=== PATIENT | female | born 1955 | race Caucasian/White ===

== ENCOUNTER 2016-11-24 11:31 | Inpatient (IN) ==
[2016-11-24] MEDS ORDERED: Clindamycin 900 MG/50 ML 900 MG/50 ML IV.SOLN IVPB ONE (12:07)
[2016-11-24] MEDS ORDERED: *HR* Propofol 200 MG/20 ML VIAL IVP ONE (12:08)
[2016-11-24] MEDS ORDERED: *HR* FentaNYL (PF) 100 MCG/2 ML VIAL ONE (12:08)
[2016-11-24] MEDS ORDERED: Ondansetron 4 MG/2 ML VIAL ONE ×2 (12:08→18:01)
[2016-11-24] MEDS ORDERED: Neostigmine Methylsulfate 3 MG/3 ML SYRINGE ONE ×2 (12:08→16:58)
[2016-11-24] MEDS ORDERED: *HR* Rocuronium Bromide 50 MG/5 ML VIAL ONE ×2 (12:08→13:51)
[2016-11-24] MEDS ORDERED: Lidocaine -MPF 2% 2 ML VIAL ONE (12:08)
[2016-11-24] MEDS ORDERED: Lidocaine 1% 20 ML MDV ID ONE (12:09)
[2016-11-24] MEDS ORDERED: *HR* Midazolam HCl 2 MG/2 ML VIAL ONE (12:09)
[2016-11-24] MEDS ORDERED: Albuterol 2.5 MG/3 ML NEBULIZER IH ONE (12:09)
[2016-11-24] MEDS ORDERED: Ringers Solution, Lactated 1,000 ML IVC SCH (12:15)
--- NOTE | 2016-11-24 12:30 | History & Physical Report ---
Date of Encounter: 11/24/16 Time of Encounter: 12:30 24 Hour HP Update - Instructions Instructions: If the History and Physical is less than 30 days old and was completed prior to A.M. admission and or procedure and has NOT been updated on calendar day of procedure please complete this update prior to performing procedure. - Update Patient reports changes in Medical Condition: No Changes in assessment/condition: No Changes in Medication: No Surgery Remains Indicated: Yes Consent for Planned Operative Procedure(s) Verified: Yes - Pre-Operative Checklist Prophylactic Antibiotic Ordered: Yes Home Medications Include Beta Elvis: No Is VTE Prophylaxis Indicated?: Yes
--- NOTE | 2016-11-24 12:49 | Anesthesia Evaluation PreOp ---
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: Denies Any Significant HX Other Medical History: Other (PTSD) Anesthesia History: No Prior Anesthetic Complications : No Alcohol Use: none Drug use: none Medications and Allergies Alprazolam [Xanax 0.5 MG Tablet] 0.5 mg PO TID 07/21/16 [History] Aspirin [Ecotrin] 325 mg PO DAILY 07/21/16 [History] Atorvastatin Calcium 80 mg PO DAILY 07/21/16 [History] Lidocaine Patch [Lidoderm 5% patch] 1 each TP DAILY PRN 07/21/16 [History] Lisinopril [Zestril] 10 mg PO DAILY 07/21/16 [History] Loratadine [Allergy Relief] 10 mg PO DAILY 07/21/16 [History] Sertraline [Zoloft] 25 mg PO DAILY 07/21/16 [History] Tizanidine HCl 4 mg PO DAILY PRN 07/21/16 [History] Vitamin B Complex [B Complex] 1 tab PO DAILY 07/21/16 [History] Docusate [Colace] 100 mg PO BID PRN #30 capsule 08/25/16 [Rx] OxyCODONE/APAP 10/325 [Percocet 10/325 MG] 1 each PO Q4HR PRN #40 tablet [Rx] Allergies Erythromycin Base Adverse Reaction (Verified 08/04/16 13:08) Vomiting Penicillins Adverse Reaction (Verified 08/04/16 13:08) Rash sulfamethoxazole [From Bactrim] Adverse Reaction (Verified 08/04/16 13:08) Rash trimethoprim [From Bactrim] Adverse Reaction (Verified 08/04/16 13:08) Rash - Meds/Allergy Pre-op Review Medications Reviewed: Yes Allergies Reviewed: Yes Beta Blockers on Current Med List: No Anesthesia Results - Labs Laboratory Tests 11/01/16 09:05 Hgb 12.3 Hct 38.5 Plt Count 198 - Imaging EKG: report reviewed (Sinus Tach short AL) Anesthesia Exam O2 Sat Height 1.57 m Height 1.57 m Weight 58.513 kg Weight 58.513 kg O2 Sat by Pulse Oximetry 97 O2 Sat by Pulse Oximetry 97 Vital Signs Temp Pulse Resp BP Pulse Ox 98.1 F 111 18 115/73 97 11/24/16 11:49 11/24/16 11:49 11/24/16 11:49 11/24/16 11:49 11/24/16 11:49 Height: 5'2 Weight: 129 lbs NPO (# of Hours): MN Pain Scale: 0 - HEENT Pupil (Motor): Pupils equal, EOMI Mallampati: II Teeth: Normal Denture Type: Upper: Complete Oral Opening: Greater than 3 - DIESEL POWER MECHANIC LOC: Oriented DIESEL POWER MECHANIC Motor: Normal RUE, Normal LUE, Normal RLE, Normal LLE, Normal Face DIESEL POWER MECHANIC Sensory: Normal: RUE, LUE, RLE, LLE, Face - Cardiac Rhythm: Regular JVD: No Carotid Bruit: No - Pulmonary Breath Sounds: bilateral Clear Respiratory Effort: Symmetrical Anesthesia Assess/Plan ASA Score: 3 (CAD HTN COPD) Modified Soraida Scale for Level of Consciousness: Cooperative, oriented, and tranquil Anesthetic Plan: General Monitoring Plan: A-Line Recovery Plan: PACU (Discussed GA, agrees to proceed)
[2016-11-24] MEDS ORDERED: *HR* HYDROmorphone 2 MG/ML SYRINGE ONE ×2 (14:02→16:58)
--- NOTE | 2016-11-24 17:38 | Operative Note ---
Date of procedure: 11/24/16 Pre-op diagnosis: perforated sigmoid colon Post-op diagnosis: same (adhesions) Procedure: Colostomy reversal, 2 hrs of lysis of adhesions, takedown splenic flexure Complications: none immediate Anesthesia: SHMUEL Surgeon: Marija Woodward [place] Applier: Franchesca Mckinley Estimated blood loss (cc): 50 IV fluids (cc): 0 (see anesthesia sheet) Urine output (cc): 100 Specimen: anastamotic rings, end of colostomy Condition: stable Disposition: PACU Procedure in Detail: Patient was brought into the operating suite, sign-in was performed and everyone was in agreement.Anesthesia was induced and patient was endotracheally intubated by anesthesia without incident. Her legs were placed in yellow-fin stirrups. A tejeda was placed by the circulating nurse. A rectal exam with a rigid sigmoidoscopy was peformed to ensure no residual stool was in the rectal vault, it was empty. The colostomy opening was sewn closed with a 3-0 silk pursestring stitch. The perineum and abdomen were prepped and draped in the usual sterile fashion with betadine. Time out was performed and everyone was in agreement. An elliptical incision through the skin into the subcutaneous tissue around the colostomy was made with a 15# blade. The colostomy was dissected free from the subcutaneous tissue with the bovie. The colostomy was free from the fascia with the bovie and metzenbaum scissors. The previous midline scar from her Lanie procedure was excised with a 15 blade. Dissection through the subcutaneous tissue was done with the bovie and the abdomen was entered at the midline with the bovie. Kockers were placed on the right abdominal wall fascia for retraction. The patient has significant adhesions with small bowel significantly adhesed to small bowel, the anterior abdominal wall, and down in the pelvis. Lysis of adhesions to free the small bowel took two hours. There was a small serosal tear at the proximal jejunum that was Lembert repaired with three 3-0 silk stitches, this is an expected potential complication. The bookwalter was placed for retraction and exposure. The left colon was free'd from the lateral wall at the white line of tolt up to the splenic flexure with the bovie and gentle blunt dissection. The splenic flexure of the colon was taken down with the bovie and gentle blunt dissection. The colon reached well into the pelvis. The previous prolene stitch on the rectal stump was visualized and a car placed on the proximal rectum for retraction. The proximal rectum was dissected free for approximately 2-3 cm ensure good mobility, using the right angle and bovie. A small lateral stalk vessel was ligated with medium clips and transected with metzenbaums. An area of the left colon approximately 6 cm from the end a hemostat was placed beneath the colon making an opening in the mesentary and a disposable pursestring stapler was applied. The distal colon was transected with a 10# blade. Babcocks were placed on the open colon edge for retraction and the colon dilators were placed into the open left colon , going up to the 29 mm dilator. The dilators were used to dilate the rectal stump. A 25 mm EEA stapler was used to create the colorectal anastomosis. Chan anastomotic rings were evaluated and found to be complete. The patient was placed in reverse trendelenburg position and irrigation placed into the pelvis. The left colon was clamped with a noncrushing bowel clamp. A large 30cc balloon catheter was placed into the anus and the balloon insufflated with saline. 210 cc of air was instilled into the catheter and no leakage of air was present. and A small amount of oozing was noted to be in the pelvis with no obvious source. A 10 mm KAUR drain was placed into the pelvis anterior to the rectal stump , through the right lower lateral abdominal wall and was secured to the skin with a 2-0 silk stitch. The pelvis was irrigated with sterile saline. The small bowel was run from the ligament of trietz to the terminal ileum ensuring no small bowel injury was present. The ng tube was palpated within the stomach. The small bowel was returned to the abdomen and the omentum was placed into the pelvis anterior to the anastomosis. Kockers were placed on the left lateral fascia and the posterior colostomy site fascia was closed with a #1 nonlooped running PDS. Kockers were placed on either side of the fascia and the midline was closed with two separate #1 nonlooped PDS running stitches meeting in the middle. The subcutaneous tissue of the midline and the colostomy site was copiously irrigated with sterile saline. several 3-0 vicryl interrupted subcutaneous stitches were used to approximate the the midline incision as well as the colostomy site. [place] were used to close the skin at both sites. Sterile 4x4 gauze and medipore tape were applied as a dressing and a drain sponge placed at the KAUR drain site. An abdominal binder was placed. The ng tube and tejeda catheter remained in the patient. All lap and instrument counts were correct at the end of the case. She was awoken in the operating suite having tolerated the procedure well and taken to PACU in stable condition.
[2016-11-24] MEDS: *HR* HYDROmorphone (PF) 1 MG/ML SYRINGE IVP PRN ×4 (17:55→18:29)
[2016-11-24] MEDS ORDERED: Ondansetron 4 MG/2 ML VIAL IVP PRN ×2 (17:58→19:24)
[2016-11-24] MEDS ORDERED: Acetaminophen IV 1,000 MG/100 ML INFUS..BTL IVPB ONE (18:13)
--- NOTE | 2016-11-24 18:53 | Anesthesia Evaluation Post Op ---
Date of Encounter: 11/24/16 Time of Encounter: 18:52 - Vital Signs Vital Signs: Vital Signs/O2 Sat, Most Current Temp Pulse Resp BP Pulse Ox 97.0 F L 86 14 93/70 96 11/24/16 18:49 11/24/16 18:49 11/24/16 18:49 11/24/16 18:49 11/24/16 18:49 - Lungs Lungs: Clear Ascult./Percussion - Airway Airway: Non-obstructed - Cardiovascular Regular Rate - Mental Status Mental Status: Alert & Oriented, Answers Appropriately - Pain Pain Scale: 0 Pain Scale used: Numeric (1 - 10) - Nausea Vomiting Nausea Vomiting: Not Present - Hydration Hydration: Tolerates oral liquids, Has not voided - Discharge PostOp Status: Transfer Patient to floor
[2016-11-24] MEDS: 0.9 % Sodium Chloride 1,000 ML IVC SCH (19:10)
[2016-11-24] MEDS ORDERED: *HR* Promethazine 25 MG/ML VIAL IVP PRN (19:24)
[2016-11-24] MEDS ORDERED: Naloxone 0.4 MG/ML INJ IVP PRN ×2 (19:24)
[2016-11-24] MEDS: *HR* Metoprolol 5 MG/5 ML VIAL IVP SCH ×2 (20:09→23:26)
[2016-11-24] MEDS: *HR* HYDROmorphone 20 MG/20 ML PCA IVC PRN (20:22)
[2016-11-24] MEDS ORDERED: 0.9 % Sodium Chloride 500 ML IVC ONE (22:09)
[2016-11-24] MEDS: Acetaminophen IV 1,000 MG/100 ML INFUS..BTL IVPB SCH (23:19)
[2016-11-25 04:53] LABS: Basophils % 0.1 %; Hematocrit 37.2 % (35.3-44.9); Hemoglobin 12.1 g/dL (11.5-15.4); Immature Granulocytes % 0.4 % (0-4); Lymphocytes # 1.1 K/mcL (0.6-4.6); Lymphocytes % 7.7 %; Mean Corpuscular HGB Conc 32.5 g/dL (31.6-35.5); Mean Corpuscular Hemoglobin 30.3 pg (28.0-33.3); Mean Platelet Volume 10.1 fL (9.4-12.4); Monocytes % 6.9 %; Neutrophils # 11.6 K/mcL (1.6-8.9); Platelet Count 183 K/mcL (140-400); Red Cell Distribution Width 13.9 % (11.5-14.5); Segmented Neutrophils % 84.9 %
[2016-11-25 05:09] LABS: BUN/Creatinine Ratio 16 (6-26); Blood Urea Nitrogen 13 mg/dL (7-20); Calcium 7.6 mg/dL (8.6-10.8); Carbon Dioxide 24 mEq/L (19-29); Chloride 109 mEq/L (98-109); Glucose 122 mg/dL (70-99); Magnesium 1.4 mg/dL (1.6-2.6); Osmolality,Calculated 291 (280-300); Potassium 4.5 mEq/L (3.5-4.5); Sodium 140 mEq/L (136-145); eGFR For African Americans > 60 (> 60); eGFR For Non-African Americans > 60 (> 60)
[2016-11-25] MEDS: *HR* Metoprolol 5 MG/5 ML VIAL IVP SCH ×3 (05:49→16:47)
[2016-11-25] MEDS: 0.9 % Sodium Chloride 1,000 ML IVC SCH ×2 (06:35→17:09)
[2016-11-25] MEDS ORDERED: Magnesium Sulfate 2 GM in D5% in Water 100 ML IVPB ONE (07:47)
[2016-11-25] MEDS: Acetaminophen IV 1,000 MG/100 ML INFUS..BTL IVPB SCH ×2 (07:57→17:33)
[2016-11-25] MEDS: Pantoprazole 40 MG VIAL IVP SCH (07:57)
--- NOTE | 2016-11-25 10:02 | General Surgery Progress Note ---
Date of Encounter: 11/25/16 Time of Encounter: 08:10 - Assessment and Plan (1) DVT prophylaxis Current Visit: No Status: Acute EPCD's currently (2) CAD (coronary artery disease) Current Visit: No Status: Chronic hold home meds Qualifiers: Coronary Disease-Associated Artery/Lesion type: unspecified vessel or lesion type [place] vs. transplanted heart: [place] heart Associated angina: angina presence unspecified Qualified Code(s): I25.10 - Atherosclerotic heart disease of [place] coronary artery without angina pectoris (3) HLD (hyperlipidemia) Current Visit: No Status: Chronic hold home meds Qualifiers: Hyperlipidemia type: unspecified Qualified Code(s): E78.5 - Hyperlipidemia , unspecified (4) Leukocytosis Current Visit: No Status: Resolved secondary to surgery, monitor Qualifiers: Leukocytosis type: unspecified Qualified Code(s): D72.829 - Elevated white blood cell count, unspecified (5) History of colostomy reversal Current Visit: Yes Status: Acute POD 1 colostomy reversal, lysis of adhesions x 2hrs, splenic flexure takedown continue npo, ivf hydration discussed with patient that due to manipulation of bowel I wouldnt be surprised if she gets a post op ileus, wouldn't expect any return of bowel function for at least 4 days regardless continue ngt decompression continue tejeda, pt not moving well d/t but 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 security 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 and isnt hitting button, has been educated, if continues to be a problem may need to dc personal security specialist and place on prn pain control OOB to chair today KAUR drain with serosang drainage, less sanginous than last night aggressive pulmonary toilet Subjective Narrative: states pain not well controlled, but 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 Q10H ADRIANA Rx#:[id number] 0.9 % Sodium Chloride 500 500 / 500 ML @ 1875 mls/hr IVC . Q16M ONE Rx#:[id number] Ofirmev 1,000 mg In 100 200 / 200 100 / 100 ml @ 400 mls/hr IVPB Q8HR ADRIANA Rx#:[id number] Oral 0 / 0 Output: Urine 100 / 100 Estimated Blood Loss 50 / 50 Urine Amount (Catheter) 225 / 225 Catheter 625 / 625 Wound Drainage 190 / 190 65 / 65 7 / 7 Right Abdomen 80 / 80 65 / 65 7 / 7 Other: Meal NPO Blood Glucose* 115 - General physical appearance well developed, well nourished, no distress, moderate distress - Eyes PERRL, normal ocular movement - ENT dry mucosa, atraumatic - Neck Neck exam: trachea midline - Respiratory normal expansion, normal respiratory effort - Cardiovascular Cardiovascular exam: Present: RRR, no murmurs/rubs/gallops - Abdomen Abdomen: Present: soft, tender (expected post op tenderness). Absent: bowel sounds present - Incision Incision: Present: intact (dressing in place) - Integumentary no rash, no growths - Neurologic CN 2-12 grossly intact - Psychiatric oriented to time, oriented to person, oriented to place, other - Labs 11/25/16 04:16 11/25/16 04:16 Short CBC 11/25/16 Range/Units 04:16 WBC 13.7 H (4.3-11.1) K/mcL Hgb 12.1 (11.5-15.4) g/dL Hct 37.2 (35.3-44.9) % Plt Count 183 (140-400) K/mcL Neutrophils # 11.6 H (1.6-8.9) K/mcL BMP 11/25/16 Range/Units 04:16 Sodium 140 (136-145) mEq/L Potassium 4.5 (3.5-4.5) mEq/L Chloride 109 (98-109) mEq/L Carbon Dioxide 24 (19-29) mEq/L BUN 13 (7-20) mg/dL Creatinine 0.79 (0.57-1.11) mg/dL Glucose 122 H (70-99) mg/dL Calcium 7.6 L (8.6-10.8) mg/dL Vital Signs Temp Pulse Resp BP Pulse Ox 11/25/16 06:00 98.2 F 90 18 99/58 94 L 11/25/16 04:01 98.8 F 87 14 93/61 97 11/24/16 23:26 97.7 F 86 16 89/64 96 11/24/16 21:55 98.3 F 86 16 87/55 97 11/24/16 20:40 97.8 F 86 16 100/67 96 11/24/16 20:10 97.4 F L 89 16 105/72 96 11/24/16 19:30 97.5 F L 83 16 98/63 97 11/24/16 18:49 97.0 F L 86 14 93/70 96 11/24/16 18:39 83 14 102/75 96 11/24/16 18:29 93 14 116/79 96 11/24/16 18:19 97.3 F L 88 18 118/76 97 11/24/16 18:09 88 18 113/75 96 11/24/16 17:59 88 18 124/79 97 11/24/16 17:49 97.8 F 80 18 124/77 96 11/24/16 12:35 18 115/73 97 11/24/16 11:49 98.1 F 111 18 115/73 97 Intake and Output 11/24/16 11/25/16 11/25/16 23:59 07:59 15:59 Intake Total 200 / 200 1500 / 1500 100 / 100 Output Total 565 / 565 690 / 690 7 / 7 Balance -365 / -365 810 / 810 93 / 93 Intake: IV Fluids 200 / 200 1500 / 1500 100 / 100 0.9 % Sodium Chloride 1, 1000 / 1000 000 ML @ 100 mls/hr IVC . Q10H ADRIANA Rx#:[id number] 0.9 % Sodium Chloride 500 500 / 500 ML @ 1875 mls/hr IVC . Q16M ONE Rx#:[id number] Ofirmev 1,000 mg In 100 200 / 200 100 / 100 ml @ 400 mls/hr IVPB Q8HR ADRIANA Rx#:[id number] Oral 0 / 0 Output: Urine 100 / 100 Estimated Blood Loss 50 / 50 Urine Amount (Catheter) 225 / 225 Catheter 625 / 625 Wound Drainage 190 / 190 Right Abdomen 80 / 80 Other: Meal NPO Blood Glucose* 115 - VTE Documentation of Mechanical Device: Intermittent pneumatic compression device Consult Discharge Plan - Plan Referrals: Karen Guerrero CNP [Advanced Practice Nurse] - 12/15/16 10:00 am Alex Sanchez MD [Primary Care Provider] -
[2016-11-26] MEDS: Acetaminophen IV 1,000 MG/100 ML INFUS..BTL IVPB SCH ×3 (00:58→17:13)
[2016-11-26] MEDS: *HR* Metoprolol 5 MG/5 ML VIAL IVP SCH ×5 (00:58→23:22)
[2016-11-26] MEDS: 0.9 % Sodium Chloride 1,000 ML IVC SCH ×3 (03:15→23:21)
[2016-11-26 06:03] LABS: Basophils % 0.2 %; Eosinophils % 0.5 %; Hematocrit 32.9 % (35.3-44.9); Immature Granulocytes % 0.4 % (0-4); Lymphocytes # 1.7 K/mcL (0.6-4.6); Lymphocytes % 20.2 %; Mean Corpuscular HGB Conc 31.9 g/dL (31.6-35.5); Mean Corpuscular Hemoglobin 30.3 pg (28.0-33.3); Mean Corpuscular Volume 95.1 fL (83.0-100.0); Mean Platelet Volume 10.7 fL (9.4-12.4); Monocytes # 0.6 K/mcL (0.0-1.3); Monocytes % 6.8 %; Neutrophils # 5.9 K/mcL (1.6-8.9); Platelet Count 147 K/mcL (140-400); Red Blood Count 3.46 M/mcL (3.82-4.97); Red Cell Distribution Width 14.3 % (11.5-14.5); Segmented Neutrophils % 71.9 %
[2016-11-26 06:08] LABS: Hemoglobin 10.5 g/dL (11.5-15.4)
[2016-11-26 06:18] LABS: BUN/Creatinine Ratio 20 (6-26); Blood Urea Nitrogen 13 mg/dL (7-20); Calcium 7.7 mg/dL (8.6-10.8); Carbon Dioxide 26 mEq/L (19-29); Chloride 109 mEq/L (98-109); Glucose 93 mg/dL (70-99); Magnesium 1.7 mg/dL (1.6-2.6); Osmolality,Calculated 290 (280-300); Phosphorous 2.3 mg/dL (2.3-4.7); Potassium 4.2 mEq/L (3.5-4.5); Sodium 140 mEq/L (136-145); eGFR For African Americans > 60 (> 60); eGFR For Non-African Americans > 60 (> 60)
[2016-11-26] MEDS: Pantoprazole 40 MG VIAL IVP SCH (08:30)
--- NOTE | 2016-11-26 08:45 | General Surgery Progress Note ---
Date of Encounter: 11/26/16 Time of Encounter: 07:45 - Assessment and Plan (1) DVT prophylaxis Current Visit: No Status: Acute EPCD's currently (2) CAD (coronary artery disease) Current Visit: No Status: Chronic hold home meds Qualifiers: Coronary Disease-Associated Artery/Lesion type: unspecified vessel or lesion type [place] vs. transplanted heart: [place] heart Associated angina: angina presence unspecified Qualified Code(s): I25.10 - Atherosclerotic heart disease of [place] coronary artery without angina pectoris (3) HLD (hyperlipidemia) Current Visit: No Status: Chronic hold home meds Qualifiers: Hyperlipidemia type: unspecified Qualified Code(s): E78.5 - Hyperlipidemia , unspecified (4) Leukocytosis Current Visit: No Status: Resolved resolved, normal wbc Qualifiers: Leukocytosis type: unspecified Qualified Code(s): D72.829 - Elevated white blood cell count, unspecified (5) History of colostomy reversal Current Visit: Yes Status: Acute POD 2 colostomy reversal, lysis of adhesions x 2hrs, splenic flexure takedown continue npo, ivf hydration continue ngt decompression continue tejeda 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 with trailer 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 OOB to chair today, ambulate KAUR drain with serosang drainage aggressive pulmonary toilet await return of bowel function Subjective Narrative: pain better controlled, was oob to chair yesterday no nausea no flatus no complaints Objective Vital Signs - Last 8 Hours Temp Pulse Resp BP Pulse Ox 11/26/16 07:35 98.0 F 79 16 109/68 94 L 11/26/16 05:29 98.2 F 77 16 103/66 96 11/26/16 01:00 98.1 F 85 16 105/71 95 Intake and Output 11/25/16 11/26/16 11/26/16 23:59 07:59 15:59 Intake Total 1400 / 1400 800 / 800 Output Total 220 / 220 500 / 500 Balance 1180 / 1180 300 / 300 Intake: IV Fluids 1400 / 1400 800 / 800 0.9 % Sodium Chloride 1, 1300 / 1300 700 / 700 000 ML @ 100 mls/hr IVC . Q10H ADRIANA Rx#:[id number] Ofirmev 1,000 mg In 100 100 / 100 100 / 100 ml @ 400 mls/hr IVPB Q8HR ADRIANA Rx#:[id number] Oral 0 / 0 0 / 0 Output: Catheter 200 / 200 0 / 0 Gastric Drainage 500 / 500 Wound Drainage 20 / 20 0 / 0 Right Abdomen 20 / 20 0 / 0 Other: Meal NPO Blood Glucose* 81 - General physical appearance well developed, well nourished, no distress - Eyes PERRL, normal ocular movement - ENT normal mucosa, normocephalic - Neck Neck exam: trachea midline - Respiratory normal expansion, clear to auscultation - Cardiovascular Cardiovascular exam: Present: RRR, no murmurs/rubs/gallops - Abdomen Abdomen: Present: soft, tender (appropriate post op tenderness). Absent: bowel sounds present - Incision Incision: Present: clean and dry, intact - Integumentary no rash, no growths - Neurologic CN 2-12 grossly intact - Musculoskeletal normal posture - Psychiatric oriented to time, oriented to person, oriented to place, speech is normal, memory intact - Labs 11/26/16 05:17 11/26/16 05:17 Short CBC 11/26/16 Range/Units 05:17 WBC 8.2 (4.3-11.1) K/mcL Hgb 10.5 L D (11.5-15.4) g/dL Hct 32.9 L (35.3-44.9) % Plt Count 147 (140-400) K/mcL Neutrophils # 5.9 (1.6-8.9) K/mcL BMP 11/26/16 Range/Units 05:17 Sodium 140 (136-145) mEq/L Potassium 4.2 (3.5-4.5) mEq/L Chloride 109 (98-109) mEq/L Carbon Dioxide 26 (19-29) mEq/L BUN 13 (7-20) mg/dL Creatinine 0.65 (0.57-1.11) mg/dL Glucose 93 (70-99) mg/dL Calcium 7.7 L (8.6-10.8) mg/dL Vital Signs Temp Pulse Resp BP Pulse Ox 11/26/16 07:35 98.0 F 79 16 109/68 94 L 11/26/16 05:29 98.2 F 77 16 103/66 96 11/26/16 01:00 98.1 F 85 16 105/71 95 11/25/16 20:30 98.5 F 81 15 105/65 95 11/25/16 10:00 98.0 F 78 16 100/64 95 Intake and Output 11/25/16 11/26/16 11/26/16 23:59 07:59 15:59 Intake Total 1400 / 1400 800 / 800 Output Total 220 / 220 500 / 500 Balance 1180 / 1180 300 / 300 Intake: IV Fluids 1400 / 1400 800 / 800 0.9 % Sodium Chloride 1, 1300 / 1300 700 / 700 000 ML @ 100 mls/hr IVC . Q10H ADRIANA Rx#:[id number] Ofirmev 1,000 mg In 100 100 / 100 100 / 100 ml @ 400 mls/hr IVPB Q8HR ADRIANA Rx#:[id number] Oral 0 / 0 0 / 0 Output: Catheter 200 / 200 0 / 0 Gastric Drainage 500 / 500 Wound Drainage 20 / 20 0 / 0 Right Abdomen 20 / 20 0 / 0 Other: Meal NPO Blood Glucose* 81 - VTE Documentation of Mechanical Device: Intermittent pneumatic compression device Consult Discharge Plan - Plan Referrals: Karen Guerrero CNP [Advanced Practice Nurse] - 12/15/16 10:00 am Alex Sanchez MD [Primary Care Provider] -
[2016-11-26] MEDS: *HR* HYDROmorphone 20 MG/20 ML PCA IVC PRN (17:13)
[2016-11-27] MEDS: Acetaminophen IV 1,000 MG/100 ML INFUS..BTL IVPB SCH ×3 (00:38→18:27)
[2016-11-27] MEDS ORDERED: *HR* Dextrose 50 % in Water (Syg) 50 ML SYRINGE IVP ONE ×2 (00:53→06:47)
[2016-11-27 05:57] LABS: Basophils % 0.3 %; Eosinophils # 0.2 K/mcL (0.0-0.6); Eosinophils % 2.5 %; Hematocrit 30.1 % (35.3-44.9); Hemoglobin 9.8 g/dL (11.5-15.4); Immature Granulocytes % 0.3 % (0-4); Lymphocytes # 1.6 K/mcL (0.6-4.6); Lymphocytes % 26.3 %; Mean Corpuscular HGB Conc 32.6 g/dL (31.6-35.5); Mean Corpuscular Hemoglobin 30.6 pg (28.0-33.3); Mean Corpuscular Volume 94.1 fL (83.0-100.0); Mean Platelet Volume 10.9 fL (9.4-12.4); Monocytes # 0.3 K/mcL (0.0-1.3); Monocytes % 5.3 %; Neutrophils # 3.9 K/mcL (1.6-8.9); Platelet Count 149 K/mcL (140-400); Red Cell Distribution Width 13.4 % (11.5-14.5); Segmented Neutrophils % 65.3 %
[2016-11-27] MEDS: *HR* Metoprolol 5 MG/5 ML VIAL IVP SCH ×3 (05:57→18:28)
[2016-11-27 06:23] LABS: BUN/Creatinine Ratio 19 (6-26); Blood Urea Nitrogen 12 mg/dL (7-20); Calcium 7.6 mg/dL (8.6-10.8); Carbon Dioxide 22 mEq/L (19-29); Chloride 113 mEq/L (98-109); Glucose 67 mg/dL (70-99); Osmolality,Calculated 294 (280-300); Potassium 3.5 mEq/L (3.5-4.5); Sodium 143 mEq/L (136-145); eGFR For African Americans > 60 (> 60); eGFR For Non-African Americans > 60 (> 60)
[2016-11-27] MEDS ORDERED: *HR* Dextrose 50 % in Water (Syg) 50 ML SYRINGE ONE (07:05)
[2016-11-27] MEDS: D5% in 0.45% NACL w KCl 20 MEQ/1,000 ML MLS IVC SCH ×2 (07:09→18:33)
[2016-11-27] MEDS: 0.9 % Sodium Chloride 1,000 ML IVC SCH ×2 (09:52→18:35)
[2016-11-27] MEDS: Pantoprazole 40 MG VIAL IVP SCH (10:01)
--- NOTE | 2016-11-27 12:02 | General Surgery Progress Note ---
Date of Encounter: 11/27/16 Time of Encounter: 11:46 - Assessment and Plan (1) History of colostomy reversal Current Visit: Yes Status: Acute POD 3 colostomy reversal, lysis of adhesions x 2hrs, splenic flexure takedown WBC: 6 continue npo, ivf hydration continue ngt decompression continue tejeda 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 with can marker OOB to chair today, ambulate in hassan KAUR drain with serosang drainage aggressive pulmonary toilet awaiting return of bowel function. (2) CAD (coronary artery disease) Current Visit: No Status: Chronic hold home meds Qualifiers: Coronary Disease-Associated Artery/Lesion type: unspecified vessel or lesion type [place] vs. transplanted heart: [place] heart Associated angina: angina presence unspecified Qualified Code(s): I25.10 - Atherosclerotic heart disease of [place] coronary artery without angina pectoris (3) DVT prophylaxis Current Visit: No Status: Acute EPCDs (4) HLD (hyperlipidemia) Current Visit: No Status: Chronic hold home meds Qualifiers: Hyperlipidemia type: unspecified Qualified Code(s): E78.5 - Hyperlipidemia , unspecified (5) Leukocytosis Current Visit: No Status: Resolved wbc 6 today Qualifiers: Leukocytosis type: unspecified Qualified Code(s): D72.829 - Elevated white blood cell count, unspecified Subjective Patient reports: no new complaints Narrative: Patient seen and examined at bedside with Dr. Oleary. Patient had no new complaints today. No bm yet, but having flatus. Still having pain, but is well controlled with SUPERVISOR KENNEL. Pt. to be up out of bed today with ambulation in hassan. Objective Vital Signs - Last 8 Hours Temp Pulse Resp BP Pulse Ox 11/27/16 11:32 99.1 F 81 16 153/76 97 11/27/16 09:48 97 11/27/16 07:26 98.0 F 65 14 117/69 97 11/27/16 04:45 98.0 F 72 14 122/79 96 Intake and Output 11/26/16 11/27/16 11/27/16 23:59 07:59 15:59 Intake Total 160 / 160 0 / 0 1100 / 1100 Output Total 210 / 210 850 / 850 495 / 495 Balance -50 / -50 -850 / -850 605 / 605 Intake: IV Fluids 100 / 100 1100 / 1100 0.9 % Sodium Chloride 1, 1000 / 1000 000 ML @ 100 mls/hr IVC . Q10H ADRIANA Rx#:[id number] Ofirmev 1,000 mg In 100 100 / 100 100 / 100 ml @ 400 mls/hr IVPB Q8HR ADRIANA Rx#:[id number] Oral 60 / 60 0 / 0 Output: Catheter 200 / 200 350 / 350 225 / 225 Gastric Drainage 500 / 500 250 / 250 Wound Drainage 10 / 10 0 / 0 20 / 20 Right Abdomen 10 / 10 0 / 0 20 / 20 Other: Meal NPO Percent of Meal Consumed 0% Blood Glucose* 80 109 89 - Additional Exam - General physical appearance well developed, well nourished, no distress - Eyes PERRL, normal ocular movement - ENT normal mucosa, normocephalic - Neck Neck exam: trachea midline - Respiratory normal expansion, clear to auscultation - Cardiovascular Cardiovascular exam: Present: RRR, no murmurs/rubs/gallops - Abdomen Abdomen: Present: soft, tender (appropriate post op tenderness). Absent: bowel sounds present - Incision Incision: Present: clean and dry, intact - Integumentary no rash, no growths - Neurologic CN 2-12 grossly intact - Musculoskeletal normal posture - Psychiatric oriented to time, oriented to person, oriented to place, speech is normal, memory intact - Labs 11/27/16 04:50 11/27/16 04:30 Diabetes panel 11/27/16 Range/Units 04:30 Sodium 143 (136-145) mEq/L Potassium 3.5 (3.5-4.5) mEq/L Chloride 113 H (98-109) mEq/L Carbon Dioxide 22 (19-29) mEq/L BUN 12 (7-20) mg/dL Creatinine 0.62 (0.57-1.11) mg/dL Glucose 67 L (70-99) mg/dL Calcium 7.6 L (8.6-10.8) mg/dL Calcium panel 11/27/16 Range/Units 04:30 Calcium 7.6 L (8.6-10.8) mg/dL Pituitary panel 11/27/16 Range/Units 04:30 Sodium 143 (136-145) mEq/L Potassium 3.5 (3.5-4.5) mEq/L Chloride 113 H (98-109) mEq/L Carbon Dioxide 22 (19-29) mEq/L BUN 12 (7-20) mg/dL Creatinine 0.62 (0.57-1.11) mg/dL Glucose 67 L (70-99) mg/dL Calcium 7.6 L (8.6-10.8) mg/dL Adrenal panel 11/27/16 Range/Units 04:30 Sodium 143 (136-145) mEq/L Potassium 3.5 (3.5-4.5) mEq/L Chloride 113 H (98-109) mEq/L Carbon Dioxide 22 (19-29) mEq/L BUN 12 (7-20) mg/dL Creatinine 0.62 (0.57-1.11) mg/dL Glucose 67 L (70-99) mg/dL Calcium 7.6 L (8.6-10.8) mg/dL - VTE Documentation of Mechanical Device: Intermittent pneumatic compression device Consult Discharge Plan - Plan Referrals: Karen Guerrero CNP [Advanced Practice Nurse] - 12/15/16 10:00 am Alex Sanchez MD [Primary Care Provider] - - Attending Attestation I examined this patient and my medical decision-making was reviewed with the DISEASE CASE MANAGER RN/PA/Advanced Practice Nurse/Resident Physician. I agree with the documented findings, disposition and treatment plan as described except to the extent set forth below. The patient is seen on morning rounds with the resident. She continues to have no bowel sounds and NG output. Continue supportive care. and await bowel function Jacob Oleary MD FACS
[2016-11-28] MEDS: Acetaminophen IV 1,000 MG/100 ML INFUS..BTL IVPB SCH (00:10)
[2016-11-28] MEDS: *HR* Metoprolol 5 MG/5 ML VIAL IVP SCH ×5 (00:58→23:47)
[2016-11-28] MEDS: 0.9 % Sodium Chloride 1,000 ML IVC SCH ×3 (06:26→23:48)
[2016-11-28] MEDS: D5% in 0.45% NACL w KCl 20 MEQ/1,000 ML MLS IVC SCH ×2 (07:06→18:45)
[2016-11-28] MEDS: Pantoprazole 40 MG VIAL IVP SCH (08:02)
--- NOTE | 2016-11-28 12:10 | General Surgery Progress Note ---
Date of Encounter: 11/28/16 Time of Encounter: 12:15 - Assessment and Plan (1) History of colostomy reversal Current Visit: Yes Status: Acute POD 4 colostomy reversal, lysis of adhesions x 2hrs, splenic flexure takedown continue npo except ice chips, ivf hydration, okay for popsicles continue ngt decompression DC Mark 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 with veneer lathe operator until able to tolerate by mouth pain medicine OOB to chair today, ambulate in hassan KAUR drain with serosang drainage will DC today aggressive pulmonary toilet awaiting return of bowel function. (2) CAD (coronary artery disease) Current Visit: No Status: Chronic hold home meds Qualifiers: Coronary Disease-Associated Artery/Lesion type: unspecified vessel or lesion type [place] vs. transplanted heart: [place] heart Associated angina: angina presence unspecified Qualified Code(s): I25.10 - Atherosclerotic heart disease of [place] coronary artery without angina pectoris (3) DVT prophylaxis Current Visit: No Status: Acute EPCDs (4) HLD (hyperlipidemia) Current Visit: No Status: Chronic hold home meds Qualifiers: Hyperlipidemia type: unspecified Qualified Code(s): E78.5 - Hyperlipidemia , unspecified Subjective Patient reports: feels better, flatus, no bowel movement Narrative: Patient seen and examined at bedside. She is complaining of pain at her KAUR drain site. Continues to have flatus and bowel sounds, but no BM. Denies nausea. Pt. up to chair and ambulate in hassan. Patient denies any complaints. She has only passed flatus once last night and once today. She has no nausea. She is thirsty. She is complaining of pain at the right lower quadrant abdominal wall where the KAUR drain is present. She has been up out of bed and walk to the nurse's station. Objective Vital Signs - Last 8 Hours Temp Pulse Resp BP Pulse Ox 11/28/16 11:59 98.4 F 71 20 128/74 95 11/28/16 08:12 98.0 F 75 18 152/81 94 L Intake and Output 11/27/16 11/28/16 11/28/16 23:59 07:59 15:59 Intake Total 1100 / 1100 1000 / 1000 0 / 0 Output Total 400 / 400 775 / 775 610 / 610 Balance 700 / 700 225 / 225 -610 / -610 Intake: IV Fluids 1100 / 1100 1000 / 1000 KCl 20mEq IN D5%-0.45 1000 / 1000 1000 / 1000 NACL 20 meq In 1,000 ml @ 80 mls/hr IVC .[id number] [facility] Rx#:[id number] Ofirmev 1,000 mg In 100 100 / 100 ml @ 400 mls/hr IVPB Q8HR [facility] Rx#:[id number] Oral 0 / 0 0 / 0 0 / 0 Output: Urine 100 / 100 Catheter 500 / 500 350 / 350 Gastric Drainage 300 / 300 250 / 250 250 / 250 Wound Drainage Right Abdomen Other: Meal NPO Weight 61.235 kg Blood Glucose* 85 94 99 - General physical appearance well developed, well nourished, no distress - Eyes PERRL, normal ocular movement - ENT normal mucosa, normocephalic - Neck Neck exam: trachea midline - Respiratory normal expansion, clear to auscultation - Cardiovascular Cardiovascular exam: Present: RRR - Abdomen Abdomen: Present: bowel sounds present, soft, tender (Appropriate postoperative tenderness) - Incision Incision: Present: clean and dry, intact - Integumentary no rash, no growths - Neurologic CN 2-12 grossly intact - Musculoskeletal normal posture - Psychiatric oriented to time, oriented to person, memory intact - Additional Exam - General physical appearance well developed, well nourished, no distress - Eyes PERRL, normal ocular movement - ENT normal mucosa, normocephalic - Neck Neck exam: trachea midline - Respiratory normal expansion, clear to auscultation - Cardiovascular Cardiovascular exam: Present: RRR, no murmurs/rubs/gallops - Abdomen Abdomen: Present: soft, tender (appropriate post op tenderness). Absent: bowel sounds present - Incision Incision: Present: clean and dry, intact - Integumentary no rash, no growths - Neurologic CN 2-12 grossly intact - Musculoskeletal normal posture - Psychiatric oriented to time, oriented to person, oriented to place, speech is normal, memory intact - Labs 11/27/16 04:50 11/27/16 04:30 Vital Signs Temp Pulse Resp BP Pulse Ox 11/28/16 15:22 98.2 F 65 16 137/87 95 11/28/16 11:59 98.4 F 71 20 128/74 95 11/28/16 08:12 98.0 F 75 18 152/81 94 L 11/28/16 03:45 98.4 F 75 16 134/78 93 L 11/28/16 00:26 98.7 F 68 16 139/73 91 L 11/27/16 19:58 98.3 F 64 16 164/90 96 Intake and Output 11/28/16 11/28/16 11/28/16 07:59 15:59 23:59 Intake Total 1000 / 1000 0 / 0 Output Total 775 / 775 870 / 870 5 / 5 Balance 225 / 225 -870 / -870 -5 / -5 Intake: IV Fluids 1000 / 1000 KCl 20mEq IN D5%-0.45 1000 / 1000 NACL 20 meq In 1,000 ml @ 80 mls/hr IVC .[id number] [facility] Rx#:[id number] Oral 0 / 0 0 / 0 Output: Catheter 500 / 500 450 / 450 Gastric Drainage 250 / 250 400 / 400 Wound Drainage 25 / 25 20 / 20 5 / 5 Right Abdomen 25 / 25 20 / 20 5 / 5 Other: Meal NPO Blood Glucose* 94 99 - VTE Documentation of Mechanical Device: Intermittent pneumatic compression device Consult Discharge Plan - Plan Referrals: Karen Guerrero CNP [Advanced Practice Nurse] - 12/15/16 10:00 am Alex Sanchez MD [Primary Care Provider] - - Attending Attestation I examined this patient and my medical decision-making was reviewed with the OVERNIGHT BABYSITTER/PA/Advanced Practice Nurse/Resident Physician. I agree with the documented findings, disposition and treatment plan as described except to the extent set forth below.
[2016-11-28] MEDS: Ketorolac 15 MG/ML VIAL IVP SCH ×3 (14:11→23:47)
[2016-11-28] MEDS: *HR* Heparin 5,000 UNIT/ML VIAL SQ SCH (18:47)
[2016-11-29] MEDS: *HR* Heparin 5,000 UNIT/ML VIAL SQ SCH ×2 (05:34→17:12)
[2016-11-29] MEDS: Ketorolac 15 MG/ML VIAL IVP SCH ×4 (05:35→23:38)
[2016-11-29] MEDS: *HR* Metoprolol 5 MG/5 ML VIAL IVP SCH ×4 (05:35→23:38)
[2016-11-29 05:43] LABS: Basophils % 0.5 %; Eosinophils # 0.3 K/mcL (0.0-0.6); Eosinophils % 8.3 %; Hematocrit 32.2 % (35.3-44.9); Hemoglobin 10.7 g/dL (11.5-15.4); Immature Granulocytes % 0.8 % (0-4); Lymphocytes # 1.2 K/mcL (0.6-4.6); Lymphocytes % 31.1 %; Mean Corpuscular HGB Conc 33.2 g/dL (31.6-35.5); Mean Corpuscular Hemoglobin 30.1 pg (28.0-33.3); Mean Corpuscular Volume 90.4 fL (83.0-100.0); Mean Platelet Volume 10.2 fL (9.4-12.4); Monocytes # 0.4 K/mcL (0.0-1.3); Monocytes % 9.1 %; Platelet Count 177 K/mcL (140-400); Red Blood Count 3.56 M/mcL (3.82-4.97); Red Cell Distribution Width 13.8 % (11.5-14.5); Segmented Neutrophils % 50.2 %
[2016-11-29 05:54] LABS: Magnesium 1.2 mg/dL (1.6-2.6); Phosphorous 3.3 mg/dL (2.3-4.7)
[2016-11-29 05:58] LABS: BUN/Creatinine Ratio 9 (6-26); Blood Urea Nitrogen 6 mg/dL (7-20); Calcium 7.9 mg/dL (8.6-10.8); Carbon Dioxide 25 mEq/L (19-29); Chloride 112 mEq/L (98-109); Glucose 106 mg/dL (70-99); Osmolality,Calculated 294 (280-300); Potassium 3.5 mEq/L (3.5-4.5); Sodium 143 mEq/L (136-145); eGFR For African Americans > 60 (> 60); eGFR For Non-African Americans > 60 (> 60)
[2016-11-29] MEDS: Pantoprazole 40 MG VIAL IVP SCH (07:56)
[2016-11-29] MEDS: D5% in 0.45% NACL w KCl 20 MEQ/1,000 ML MLS IVC SCH ×2 (07:56→22:57)
[2016-11-29] MEDS: 0.9 % Sodium Chloride 1,000 ML IVC SCH (07:57)
[2016-11-29] MEDS: Metoclopramide 20 MG in 0.9 % Sodium Chloride 50 ML IVPB SCH ×2 (12:17→18:19)
--- NOTE | 2016-11-29 14:36 | General Surgery Progress Note ---
Date of Encounter: 11/29/16 Time of Encounter: 14:33 - Assessment and Plan (1) History of colostomy reversal Current Visit: Yes Status: Acute POD 4 colostomy reversal, lysis of adhesions x 2hrs, splenic flexure takedown continue npo except ice chips, ivf hydration, okay for popsicles NGT to [place] 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 with pet sitter until able to tolerate by mouth pain medicine OOB to chair today, ambulate in hassan Reglan 20mg IV q8h for 36 hrs KAUR drain with serosang drainage will DC today aggressive pulmonary toilet awaiting return of bowel function. (2) CAD (coronary artery disease) Current Visit: No Status: Chronic hold home meds Qualifiers: Coronary Disease-Associated Artery/Lesion type: unspecified vessel or lesion type [place] vs. transplanted heart: [place] heart Associated angina: angina presence unspecified Qualified Code(s): I25.10 - Atherosclerotic heart disease of [place] coronary artery without angina pectoris (3) DVT prophylaxis Current Visit: No Status: Acute Heparin subq 5000 BID (4) HLD (hyperlipidemia) Current Visit: No Status: Chronic hold home meds Qualifiers: Hyperlipidemia type: unspecified Qualified Code(s): E78.5 - Hyperlipidemia , unspecified Subjective Patient reports: feels better, still having pain, flatus, no bowel movement, afebrile Narrative: Patient seen and examined at bedside with Dr. Oleary. Feeling better today. Still having flatus, but no BM. Denies nausea. Afebrile. She has been ambulating in hassan. Objective Vital Signs - Last 8 Hours Temp Pulse Resp BP Pulse Ox 11/29/16 11:30 97.8 F 60 14 124/74 97 11/29/16 07:40 98.2 F 66 16 129/75 97 11/29/16 07:00 93 L Intake and Output 11/28/16 11/29/16 11/29/16 23:59 07:59 15:59 Intake Total 1000 / 1000 1000 / 1000 329 / 329 Output Total 330 / 330 425 / 425 350 / 350 Balance 670 / 670 575 / 575 -21 / -21 Intake: IV Fluids 1000 / 1000 1000 / 1000 329 / 329 KCl 20mEq IN D5%-0.45 1000 / 1000 1000 / 1000 275 / 275 NACL 20 meq In 1,000 ml @ 80 mls/hr IVC .[id number] [facility] Rx#:[id number] Reglan 20 MG In 0.9 % 54 / 54 Sodium Chloride 50 ML @ 108 mls/hr IVPB Q8H [facility] Rx#:[id number] Oral 0 / 0 0 / 0 0 / 0 Output: Urine 0 / 0 0 / 0 Catheter 325 / 325 Gastric Drainage 425 / 425 350 / 350 Wound Drainage 5 / 5 Right Abdomen 5 / 5 Other: Meal npo Weight 61.4 kg Blood Glucose* 85 100 106 Patient Weight 11/29/16 23:59 Weight 61.4 kg - Additional Exam - General physical appearance well developed, well nourished, no distress - Eyes PERRL, normal ocular movement - ENT normal mucosa, normocephalic - Neck Neck exam: trachea midline - Respiratory normal expansion, clear to auscultation - Cardiovascular Cardiovascular exam: Present: RRR - Abdomen Abdomen: Present: bowel sounds present, soft, tender (Appropriate postoperative tenderness) - Incision Incision: Present: clean and dry, intact - Integumentary no rash, no growths - Neurologic CN 2-12 grossly intact - Musculoskeletal normal posture - Psychiatric oriented to time, oriented to person, memory intact - Labs 11/29/16 04:59 11/29/16 04:59 Diabetes panel 11/29/16 Range/Units 04:59 Sodium 143 (136-145) mEq/L Potassium 3.5 (3.5-4.5) mEq/L Chloride 112 H (98-109) mEq/L Carbon Dioxide 25 (19-29) mEq/L BUN 6 L (7-20) mg/dL Creatinine 0.68 (0.57-1.11) mg/dL Glucose 106 H (70-99) mg/dL Calcium 7.9 L (8.6-10.8) mg/dL Calcium panel 11/29/16 11/29/16 Range/Units 04:59 04:59 Calcium 7.9 L (8.6-10.8) mg/dL Phosphorus 3.3 (2.3-4.7) mg/dL Pituitary panel 11/29/16 Range/Units 04:59 Sodium 143 (136-145) mEq/L Potassium 3.5 (3.5-4.5) mEq/L Chloride 112 H (98-109) mEq/L Carbon Dioxide 25 (19-29) mEq/L BUN 6 L (7-20) mg/dL Creatinine 0.68 (0.57-1.11) mg/dL Glucose 106 H (70-99) mg/dL Calcium 7.9 L (8.6-10.8) mg/dL Adrenal panel 11/29/16 Range/Units 04:59 Sodium 143 (136-145) mEq/L Potassium 3.5 (3.5-4.5) mEq/L Chloride 112 H (98-109) mEq/L Carbon Dioxide 25 (19-29) mEq/L BUN 6 L (7-20) mg/dL Creatinine 0.68 (0.57-1.11) mg/dL Glucose 106 H (70-99) mg/dL Calcium 7.9 L (8.6-10.8) mg/dL - VTE Documentation of Mechanical Device: Intermittent pneumatic compression device Consult Discharge Plan - Plan Referrals: Karen Guerrero CNP [Advanced Practice Nurse] - 12/15/16 10:00 am Alex Sanchez MD [Primary Care Provider] - - Attending Attestation I examined this patient and my medical decision-making was reviewed with the CRITICAL CARE UNIT MANAGER/PA/Advanced Practice Nurse/Resident Physician. I agree with the documented findings, disposition and treatment plan as described except to the extent set forth below. The patient is seen and evaluated with rest and on morning rounds. She continues to have no flatus and no bowel movement. She does have good bowel sounds. I think that she is beginning to recover her bowel activity. She is started on a short course of IV Reglan. Continue supportive care. Jacob Oleary MD FACS
[2016-11-29] MEDS ORDERED: Magnesium Sulfate 2 GM in D5% in Water 100 ML IVPB ONE (15:01)
[2016-11-30] MEDS: Metoclopramide 20 MG in 0.9 % Sodium Chloride 50 ML IVPB SCH ×2 (03:46→11:55)
[2016-11-30] MEDS: Ketorolac 15 MG/ML VIAL IVP SCH ×2 (05:30→11:55)
[2016-11-30] MEDS: *HR* Heparin 5,000 UNIT/ML VIAL SQ SCH ×2 (05:30→17:37)
[2016-11-30] MEDS: *HR* Metoprolol 5 MG/5 ML VIAL IVP SCH ×3 (05:30→17:36)
[2016-11-30] MEDS: Pantoprazole 40 MG VIAL IVP SCH (08:00)
[2016-11-30] MEDS: D5% in 0.45% NACL w KCl 20 MEQ/1,000 ML MLS IVC SCH (11:51)
--- NOTE | 2016-11-30 15:37 | General Surgery Progress Note ---
Date of Encounter: 11/30/16 Time of Encounter: 15:35 - Assessment and Plan (1) History of colostomy reversal Current Visit: Yes Status: Acute POD#5 colostomy reversal, lysis of adhesions x 2hrs, splenic flexure takedown Pt. improving. Less pain, starting to have flatus. Will Advance to clear liquids d/c NG 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 with convertible top installer until able to tolerate by mouth pain medicine OOB to chair today, ambulate in hassan aggressive pulmonary toilet (2) CAD (coronary artery disease) Current Visit: No Status: Chronic hold home meds Qualifiers: Coronary Disease-Associated Artery/Lesion type: unspecified vessel or lesion type [place] vs. transplanted heart: [place] heart Associated angina: angina presence unspecified Qualified Code(s): I25.10 - Atherosclerotic heart disease of [place] coronary artery without angina pectoris (3) DVT prophylaxis Current Visit: No Status: Acute Heparin subq 5000 BID (4) HLD (hyperlipidemia) Current Visit: No Status: Chronic hold home meds Qualifiers: Hyperlipidemia type: unspecified Qualified Code(s): E78.5 - Hyperlipidemia , unspecified Subjective Patient reports: feels better, still having pain, flatus, no bowel movement, afebrile Narrative: Patient seen and examined. Doing better today. Pain is less. No nausea/ vomiting. Will remove NG tube today and start clear liquids. No bm, but she has been having flatus. Objective Vital Signs - Last 8 Hours Temp Pulse Resp BP Pulse Ox 11/30/16 15:06 98.2 F 65 16 134/83 95 11/30/16 10:50 97.7 F 71 18 135/76 97 Intake and Output 11/29/16 11/30/16 11/30/16 23:59 07:59 15:59 Intake Total 883 / 883 54 / 54 1084 / 1084 Output Total 950 / 950 150 / 150 475 / 475 Balance -67 / -67 -96 / -96 609 / 609 Intake: IV Fluids 883 / 883 54 / 54 1054 / 1054 KCl 20mEq IN D5%-0.45 725 / 725 1000 / 1000 NACL 20 meq In 1,000 ml @ 80 mls/hr IVC .[id number] [facility] Rx#:[id number] Magnesium Sulfate 2 GM In 104 / 104 Dextrose 5% 100 ML @ 100 mls/hr IVPB [facility] Rx# :[id number] Reglan 20 MG In 0.9 % 54 / 54 54 / 54 54 / 54 Sodium Chloride 50 ML @ 108 mls/hr IVPB Q8H [facility] Rx#:[id number] Oral 0 / 0 0 / 0 30 / 30 Output: Urine 950 / 950 100 / 100 450 / 450 Gastric Drainage 50 / 50 25 / 25 Other: Meal NPO NPO Percent of Meal Consumed 0% Weight 59.602 kg Blood Glucose* 114 103 Patient Weight 11/30/16 23:59 Weight 59.602 kg - Additional Exam - General physical appearance well developed, well nourished, no distress - Eyes PERRL, normal ocular movement - ENT normal mucosa, normocephalic - Neck Neck exam: trachea midline - Respiratory normal expansion, clear to auscultation - Cardiovascular Cardiovascular exam: Present: RRR - Abdomen Abdomen: Present: bowel sounds present, soft, tender (Appropriate postoperative tenderness) - Incision Incision: Present: clean and dry, intact - Integumentary no rash, no growths - Neurologic CN 2-12 grossly intact - Musculoskeletal normal posture - Psychiatric oriented to time, oriented to person, memory intact - Labs 12/01/16 05:32 12/01/16 05:32 - VTE Documentation of Mechanical Device: Intermittent pneumatic compression device Consult Discharge Plan - Plan Referrals: Karen Guerrero CNP [Advanced Practice Nurse] - 12/15/16 10:00 am Alex Sanchez MD [Primary Care Provider] - - Attending Attestation I examined this patient and my medical decision-making was reviewed with the WINDOWS SERVER ENGINEER/PA/Advanced Practice Nurse/Resident Physician. I agree with the documented findings, disposition and treatment plan as described except to the extent set forth below. The patient is seen and evaluated on morning rounds with the resident. She is having flatus. The nasogastric tube was removed and she is started on diet. Jacob Oleary MD FACS
[2016-12-01] MEDS: *HR* Metoprolol 5 MG/5 ML VIAL IVP SCH ×4 (00:38→17:49)
[2016-12-01] MEDS: D5% in 0.45% NACL w KCl 20 MEQ/1,000 ML MLS IVC SCH (01:48)
[2016-12-01 06:08] LABS: Basophils % 0.3 %; Eosinophils # 0.4 K/mcL (0.0-0.6); Eosinophils % 9.3 %; Hematocrit 29.1 % (35.3-44.9); Hemoglobin 9.3 g/dL (11.5-15.4); Immature Granulocytes % 0.5 % (0-4); Lymphocytes # 1.8 K/mcL (0.6-4.6); Lymphocytes % 46.3 %; Mean Corpuscular Hemoglobin 29.5 pg (28.0-33.3); Mean Corpuscular Volume 92.4 fL (83.0-100.0); Mean Platelet Volume 10.3 fL (9.4-12.4); Monocytes # 0.5 K/mcL (0.0-1.3); Monocytes % 12.3 %; Neutrophils # 1.2 K/mcL (1.6-8.9); Platelet Count 190 K/mcL (140-400); Red Blood Count 3.15 M/mcL (3.82-4.97); Red Cell Distribution Width 14.1 % (11.5-14.5); Segmented Neutrophils % 31.3 %
[2016-12-01 06:21] LABS: BUN/Creatinine Ratio 7 (6-26); Blood Urea Nitrogen 5 mg/dL (7-20); Calcium 7.9 mg/dL (8.6-10.8); Carbon Dioxide 23 mEq/L (19-29); Chloride 110 mEq/L (98-109); Glucose 95 mg/dL (70-99); Magnesium 1.5 mg/dL (1.6-2.6); Osmolality,Calculated 289 (280-300); Phosphorous 4.3 mg/dL (2.3-4.7); Potassium 3.8 mEq/L (3.5-4.5); Sodium 141 mEq/L (136-145); eGFR For African Americans > 60 (> 60); eGFR For Non-African Americans > 60 (> 60)
[2016-12-01] MEDS: *HR* Heparin 5,000 UNIT/ML VIAL SQ SCH ×2 (06:22→17:49)
[2016-12-01] MEDS ORDERED: Magnesium Sulfate 2 GM in D5% in Water 100 ML IVPB ONE (08:12)
[2016-12-01] MEDS ORDERED: *HR* OxyCODONE/APAP 5/325 TABLET PO PRN (08:13)
[2016-12-01] MEDS: Pantoprazole 40 MG VIAL IVP SCH (08:20)
[2016-12-01] MEDS ORDERED: *HR* HYDROmorphone (PF) 1 MG/ML SYRINGE IVP PRN (14:36)
--- NOTE | 2016-12-01 14:46 | General Surgery Progress Note ---
Date of Encounter: 12/01/16 Time of Encounter: 12:00 - Assessment and Plan (1) History of colostomy reversal Status: Resolved POD #7 Colostomy revearsal Advance to full liquid diet Saline lock IV fluids Discontinue HIDE SORTER pump Pain control- transition to Percocet and dilaudid for BTP Resume home medications Increase activity as tolerated- ambulate Incentive Spirometer every 1 hour while awake- discussed with staff AM labs agree with above plan (2) DVT prophylaxis Status: Acute Continue heparin 5,000 units SQ twice daily for DVT prophylaxis Subjective Patient reports: no new complaints, feels better, still having pain, pain is less, tolerating liquids well, voiding w/o difficulty, flatus, afebrile Narrative: patient states she feels very well, no nausea, 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, having flatus and tolerated clears Objective Vital Signs - Last 8 Hours Temp Pulse Resp BP Pulse Ox 12/01/16 12:20 148/82 12/01/16 10:57 98.0 F 72 16 137/76 93 L 12/01/16 07:15 98.3 F 60 16 118/76 94 L Intake and Output 11/30/16 12/01/16 12/01/16 23:59 07:59 15:59 Intake Total 665 / 665 575 / 575 720 / 720 Output Total 450 / 450 700 / 700 Balance 215 / 215 -125 / -125 720 / 720 Intake: IV Fluids 425 / 425 575 / 575 KCl 20mEq IN D5%-0.45 425 / 425 575 / 575 NACL 20 meq In 1,000 ml @ 80 mls/hr [id number] Rx#:[id number] Oral 240 / 240 0 / 0 720 / 720 Output: Urine 450 / 450 700 / 700 Other: Meal Lunch - General physical appearance well developed, well nourished, no distress - Eyes normal ocular movement - ENT normal mucosa, atraumatic, normocephalic - Neck Neck exam: trachea midline - Respiratory normal respiratory effort, clear to auscultation - Cardiovascular Cardiovascular exam: Present: RRR - Abdomen Abdomen: Present: bowel sounds present, soft, tender (expected post-operative tenderness) - Incision Incision: Present: clean and dry, intact - Integumentary no rash, no growths - Neurologic CN 2-12 grossly intact - Musculoskeletal normal posture - Psychiatric oriented to time, oriented to person, oriented to place, speech is normal, memory intact - Labs 12/02/16 12:49 12/02/16 12:49 Diabetes panel 12/01/16 Range/Units 05:32 Sodium 141 (136-145) mEq/L Potassium 3.8 (3.5-4.5) mEq/L Chloride 110 H (98-109) mEq/L Carbon Dioxide 23 (19-29) mEq/L BUN 5 L (7-20) mg/dL Creatinine 0.75 (0.57-1.11) mg/dL Glucose 95 (70-99) mg/dL Calcium 7.9 L (8.6-10.8) mg/dL Calcium panel 12/01/16 Range/Units 05:32 Calcium 7.9 L (8.6-10.8) mg/dL Phosphorus 4.3 (2.3-4.7) mg/dL Pituitary panel 12/01/16 Range/Units 05:32 Sodium 141 (136-145) mEq/L Potassium 3.8 (3.5-4.5) mEq/L Chloride 110 H (98-109) mEq/L Carbon Dioxide 23 (19-29) mEq/L BUN 5 L (7-20) mg/dL Creatinine 0.75 (0.57-1.11) mg/dL Glucose 95 (70-99) mg/dL Calcium 7.9 L (8.6-10.8) mg/dL Adrenal panel 12/01/16 Range/Units 05:32 Sodium 141 (136-145) mEq/L Potassium 3.8 (3.5-4.5) mEq/L Chloride 110 H (98-109) mEq/L Carbon Dioxide 23 (19-29) mEq/L BUN 5 L (7-20) mg/dL Creatinine 0.75 (0.57-1.11) mg/dL Glucose 95 (70-99) mg/dL Calcium 7.9 L (8.6-10.8) mg/dL - VTE Documentation of Mechanical Device: Intermittent pneumatic compression device Consult Discharge Plan - Plan Instructions: Sepsis (DC) Additional Instructions: Discharge instructions: #1 May shower, no tub bath X 2 weeks #2 Wash incisions with soap and water and pat dry daily #3 No lifting/pushing/pulling greater than 15 lb X 6 weeks #4 No driving until off narcotics and able to safely react in the car #5 May climb stairs #6 Smoking cessation #7 Soft diet for the next 2 weeks Referrals: Karen Guerrero CNP [Advanced Practice Nurse] - 12/15/16 10:00 am Mariana Hauser CNP [Advanced Practice Nurse] - 12/11/16 3:00 pm Prescriptions: OxyCODONE/APAP 10/325 [Percocet 10/325 MG] 1 each PO Q4HR PRN #30 tablet PRN Reason: Mild To Moderate Pain Docusate [Colace] 100 mg PO BID PRN #360 capsule PRN Reason: Constipation - Attending Attestation I examined this patient and my medical decision-making was reviewed with the HAND INSERTER OPERATOR/PA/Advanced Practice Nurse/Resident Physician. I agree with the documented findings, disposition and treatment plan as described except to the extent set forth below. I examined this patient and my medical decision-making was reviewed with the HAND INSERTER OPERATOR/PA/Advanced Practice Nurse/Resident Physician. I agree with the documented findings, disposition and treatment plan as described except to the extent set forth below.
[2016-12-01] MEDS: ALPRAZolam 0.5 MG TABLET PO SCH (17:47)
[2016-12-01] MEDS: *HR* OxyCODONE/APAP 10/325 TABLET PO PRN ×2 (17:49→23:32)
[2016-12-01] MEDS ORDERED: tiZANidine 4 MG TABLET PO SCH (21:00)
[2016-12-02] MEDS: *HR* Metoprolol 5 MG/5 ML VIAL IVP SCH ×3 (01:40→12:27)
[2016-12-02] MEDS: *HR* OxyCODONE/APAP 10/325 TABLET PO PRN ×2 (01:41→08:54)
[2016-12-02] MEDS: ALPRAZolam 0.5 MG TABLET PO SCH ×3 (01:41→14:16)
[2016-12-02] MEDS: *HR* Heparin 5,000 UNIT/ML VIAL SQ SCH (05:40)
[2016-12-02] MEDS ORDERED: Loratadine 10 MG TABLET PO SCH (09:00)
[2016-12-02] MEDS ORDERED: Aspirin Enteric Coated 325 MG Tablet PO SCH (09:00)
[2016-12-02 10:40] VITALS: BP 116/48
[2016-12-02 13:24] LABS: Basophils % 0.4 %; Eosinophils # 0.3 K/mcL (0.0-0.6); Eosinophils % 6.8 %; Hematocrit 35.8 % (35.3-44.9); Immature Granulocytes % 0.4 % (0-4); Lymphocytes # 1.7 K/mcL (0.6-4.6); Lymphocytes % 36.8 %; Mean Corpuscular Hemoglobin 30.3 pg (28.0-33.3); Mean Platelet Volume 10.2 fL (9.4-12.4); Monocytes # 0.3 K/mcL (0.0-1.3); Monocytes % 6.6 %; Neutrophils # 2.3 K/mcL (1.6-8.9); Platelet Count 253 K/mcL (140-400); Red Blood Count 3.89 M/mcL (3.82-4.97)
[2016-12-02 13:25] LABS: Hemoglobin 11.8 g/dL (11.5-15.4)
[2016-12-02 13:34] LABS: BUN/Creatinine Ratio 10 (6-26); Blood Urea Nitrogen 8 mg/dL (7-20); Calcium 8.9 mg/dL (8.6-10.8); Carbon Dioxide 25 mEq/L (19-29); Chloride 107 mEq/L (98-109); Glucose 94 mg/dL (70-99); Magnesium 1.9 mg/dL (1.6-2.6); Osmolality,Calculated 290 (280-300); Potassium 3.8 mEq/L (3.5-4.5); Sodium 141 mEq/L (136-145); eGFR For African Americans > 60 (> 60); eGFR For Non-African Americans > 60 (> 60)
--- NOTE | 2016-12-02 14:14 | Discharge Summary ---
Date of Encounter: 12/02/16 Time of Encounter: 14:00 - Discharge Diagnosis (1) History of colostomy reversal Priority: Primary Status: Resolved (2) DVT prophylaxis Priority: Secondary Status: Acute - Discharge Medications Prescriptions: OxyCODONE/APAP 10/325 [Percocet 10/325 MG] 1 each PO Q4HR PRN #30 tablet PRN Reason: Mild To Moderate Pain Docusate [Colace] 100 mg PO BID PRN #360 capsule PRN Reason: Constipation Home Medications: Alprazolam [Xanax 0.5 MG Tablet] 0.5 mg PO TID 07/21/16 [History] Aspirin [Ecotrin] 325 mg PO DAILY 07/21/16 [History] Atorvastatin Calcium 80 mg PO DAILY 07/21/16 [History] Lidocaine Patch [Lidoderm 5% patch] 1 each TP DAILY PRN 07/21/16 [History] Lisinopril [Zestril] 10 mg PO DAILY 07/21/16 [History] Loratadine [Allergy Relief] 10 mg PO DAILY 07/21/16 [History] Tizanidine HCl 4 mg PO HS 07/21/16 [History] Inulin/Chromium Picolinate [Fiber Gummies] 1 each PO DAILY 11/24/16 [History] Sertraline [Zoloft] 50 mg PO DAILY 11/24/16 [History] Docusate [Colace] 100 mg PO BID PRN #360 capsule 12/02/16 [Rx] OxyCODONE/APAP 10/325 [Percocet 10/325 MG] 1 each PO Q4HR PRN #30 tablet [Rx] Allergies/Adverse Reactions: Allergies Erythromycin Base Adverse Reaction (Verified 11/24/16 12:54) Vomiting Penicillins Adverse Reaction (Verified 11/24/16 12:54) Rash sulfamethoxazole [From Bactrim] Adverse Reaction (Verified 11/24/16 12:54) Rash trimethoprim [From Bactrim] Adverse Reaction (Verified 11/24/16 12:54) Rash General Surgery Exam Initial Vital Signs Temp Pulse Resp BP Pulse Ox 98.1 F 111 18 115/73 97 11/24/16 11:49 11/24/16 11:49 11/24/16 11:49 11/24/16 11:49 11/24/16 11:49 - General physical appearance well developed, well nourished, no distress - Eyes normal ocular movement - ENT normal mucosa, atraumatic, normocephalic - Neck trachea midline - Respiratory normal expansion, normal respiratory effort, clear to auscultation - Cardiovascular Cardiovascular exam: Present: RRR, 15, 16 - Abdomen Abdomen general surgery: Present: bowel sounds present, soft, tender (expected post-operative tenderness) - Incision Incision: Present: clean and dry, intact - Integumentary Integumentary general surgery: Present: warm and dry - Neurologic Present: CN 2-12 grossly intact - Musculoskeletal Present: normal gait, normal posture - Psychiatric Psychiatric general surgery: Present: appropriate, oriented to person, oriented to place, oriented to time, speech is normal, memory intact Date of admission: 11/24/16 19:03 Primary care physician: Alex Sanchez MD Discharging clinician: Marija Woodward (Samuel Guerrero) Anticipated date of discharge: 12/02/16 - Patient Status Disposition: Home, Self-Care Condition: Good Functional capacity at discharge: independent ambulation Overall status at discharge: patient is progressing back to baseline - Discharge Instructions Follow Up With: Karen Guerrero CNP [Advanced Practice Nurse] - 12/15/16 10:00 am Alex Sanchez MD [Primary Care Provider] - (1-2 weeks hospital follow-up) Additional Instructions: Discharge instructions: #1 May shower, no tub bath X 2 weeks #2 Wash incisions with soap and water and pat dry daily #3 No lifting/pushing/pulling greater than 15 lb X 6 weeks #4 No driving until off narcotics and able to safely react in the car #5 May climb stairs #6 Smoking cessation #7 Soft diet for the next 2 weeks - Diet and Activity Activity: other (See additional instructions above) Diet: advance to your usual diet - Hospital Course Hospital course: Ms. Gramajo is a 61 year old female who is s/p Colostomy reversal, 2 hrs of lysis of adhesions, takedown splenic flexure with Dr. Woodward. She was maintained on bowel rest with NG to LIWS while awaiting return of bowel function. She did have a surgical drain in place. With return of bowel function, her NG tube was removed. She was started on clear liquids and advanced to full liquids as tolerated. She is currently tolerating a full liquid diet. She is passing flatus without difficulty. Her vital signs are stable and she is afebrile. Her labs are normal. She is ambulating and voiding without difficulty. Her pain is well controlled. We will begin discharge planning and plan for outpatient follow -up in the next 10-14 days. - Time Spent with Patient Total time spent providing and/or coordinating discharge services: Less than 30 minutes Labs on day of discharge: Labs from last 24 hours 12/02/16 12/02/16 12/02/16 12:49 12:49 06:52 WBC 4.7 RBC 3.89 Hgb 11.8 D Hct 35.8 MCV 92.0 MCH 30.3 MCHC 33.0 RDW 14.0 Plt Count 253 MPV 10.2 Immature Gran % 0.4 Seg Neutrophils % 49.0 Lymphocytes % 36.8 Monocytes % 6.6 Eosinophils % 6.8 Basophils % 0.4 Neutrophils # 2.3 Lymphocytes # 1.7 Monocytes # 0.3 Eosinophils # 0.3 Basophils # 0.0 Sodium 141 Potassium 3.8 Chloride 107 Carbon Dioxide 25 BUN 8 Creatinine 0.82 Est GFR ( Amer) > 60 Est GFR (Non-Af Amer) > 60 BUN/Creatinine Ratio 10 Glucose 94 Calculated Osmolality 290 Calcium 8.9 Magnesium 1.9 Specimen Rejected Miscellaneous - Attending Attestation I examined this patient and my medical decision-making was reviewed with the PRODUCTION EXPEDITER/PA/Advanced Practice Nurse/Resident Physician. I agree with the documented findings, disposition and treatment plan as described except to the extent set forth below.
== END 2016-12-02 15:08 | disposition home or self-care (01) | DRG 331 ==
LOC: SAMDAY 11:31 → 3ANU 19:03
PROVIDERS: ADMIT Surgery; ATTEND Surgery